=== PATIENT | female | born 1950 | race Two or more races ===

== ENCOUNTER 2017-08-23 11:31 | Inpatient (IN) | payer OTHER ==
[~2017-08-23] VITALS: Ht 152.4 cm; Wt 72.6 kg
[~2017-08-23 11:31] MED LIST: AMLODIPINE BES2.5 MG PO; AROMASIN25 MG PO; AVAPRO150 MG PO; COUMADIN2 MG PO; DISALCID750 MG PO; LIOTHYRONINE 10 MCG/ML IV; NEXIUM40 MG/PACK PO
[2017-08-29] MEDS ORDERED: CEFAZOLIN2 GM/50 M3 IV (09:36)
[2017-08-29] MEDS ORDERED: OMEPRAZOLE20 MG PO (10:34)
[2017-08-29] MEDS ORDERED: CEPHALEXIN500 M1 PO (10:34)
== END 2017-08-29 12:45 | disposition home or self-care (01) | DRG 571 ==
LOC: ER 11:31 → SEC-K 16:10 → MEDI 16:10 → SEC-K 17:43 → MEDJ 08-24 17:33
PROC: B54DZZZ Ultrasonography of Bilateral Lower Extremity Veins (ICD-10-PCS; 2017-08-24)
PROC: 0JBP0ZZ Excision of Left Lower Leg Subcutaneous Tissue and Fascia, Open Approach (ICD-10-PCS; principal; 2017-08-25)
PROC: 0JBP0ZZ Excision of Left Lower Leg Subcutaneous Tissue and Fascia, Open Approach (ICD-10-PCS; 2017-08-29)
DX: L03.116 Cellulitis of left lower limb (principal); L97.828 Non-pressure chronic ulcer of other part of left lower leg with other specified severity; L02.416 Cutaneous abscess of left lower limb; Z74.01 Bed confinement status; G80.8 Other cerebral palsy; R23.8 Other skin changes; I10 Essential (primary) hypertension; B95.61 Methicillin susceptible Staphylococcus aureus infection as the cause of diseases classified elsewhere; Z22.321 Carrier or suspected carrier of Methicillin susceptible Staphylococcus aureus; K21.9 Gastro-esophageal reflux disease without esophagitis; I87.2 Venous insufficiency (chronic) (peripheral)

== ENCOUNTER 2019-01-10 12:12 | Inpatient (IN) | payer OTHER ==
[~2019-01-10] VITALS: Ht 160 cm; Wt 77.1 kg
[~2019-01-10 12:12] MED LIST changes: +CEFAZOLIN2 GM/50 M3 IV; +CEPHALEXIN500 M1 PO; +OMEPRAZOLE20 MG PO
[2019-01-17] MEDS ORDERED: AMOX-CLAV 875-1 EACH PO (10:37)
[2019-01-17] MEDS ORDERED: INTESTINEX680 M1 PO (10:38)
[2019-01-17] MEDS ORDERED: ZANTAC150 MG PO (10:38)
[2019-01-17] MEDS ORDERED: LOTRIMIN AF12 GM TOP (10:40)
== END 2019-01-17 19:48 | DRG 603 ==
LOC: ER 12:12 → MEDJ 16:54
PROVIDERS: ADMIT Internal Medicine
PROC: 8E0ZXY6 Isolation (ICD-10-PCS; 2019-01-10)
PROC: 0T9B70Z Drainage of Bladder with Drainage Device, Via Natural or Artificial Opening (ICD-10-PCS; 2019-01-10)
PROC: 02HV33Z Insertion of Infusion Device into Superior Vena Cava, Percutaneous Approach (ICD-10-PCS; 2019-01-14)
PROC: B54DZZZ Ultrasonography of Bilateral Lower Extremity Veins (ICD-10-PCS; principal; 2019-01-16)
DX: L03.116 Cellulitis of left lower limb (principal); I96 Gangrene, not elsewhere classified; I74.3 Embolism and thrombosis of arteries of the lower extremities; L03.115 Cellulitis of right lower limb; L89.522 Pressure ulcer of left ankle, stage 2; A49.01 Methicillin susceptible Staphylococcus aureus infection, unspecified site; K21.9 Gastro-esophageal reflux disease without esophagitis; G80.9 Cerebral palsy, unspecified; R31.0 Gross hematuria; I87.8 Other specified disorders of veins; I10 Essential (primary) hypertension; Z88.2 Allergy status to sulfonamides; Z99.3 Dependence on wheelchair

== ENCOUNTER → 2019-05-11 | Emergency (ER) | payer OTHER ==
[~2019-05-11] VITALS: Ht 157.5 cm; Wt 68.0 kg
[~2019-05-11] MED LIST changes: +AMOX-CLAV 875-1 EACH PO; +BACLOFEN20 MG PO; +INTESTINEX680 M1 PO; +LOTRIMIN AF12 GM TOP; +SALSALATE750 MG; +ZANTAC150 MG PO
== END | disposition home or self-care (01) ==
LOC: ER 13:16
DX: G80.8 Other cerebral palsy (principal); N39.0 Urinary tract infection, site not specified

== ENCOUNTER 2019-05-26 20:03 | Emergency (ER) | payer OTHER ==
[~2019-05-26] VITALS: Ht 152.4 cm; Wt 81.6 kg
== END 2019-05-27 12:30 | disposition home or self-care (01) ==
LOC: ER 20:03
DX: G45.8 Other transient cerebral ischemic attacks and related syndromes (principal); R41.0 Disorientation, unspecified; Z60.2 Problems related to living alone

== ENCOUNTER 2021-04-18 09:04 | Outpatient (CLI) | payer OTHER | END 2021-04-18 09:09 | disposition home or self-care (01) | LOC: SONOGRAMA 09:04 | PROVIDERS: ATTEND General Practice | DX: K76.0 Fatty (change of) liver, not elsewhere classified (principal); K80.80 Other cholelithiasis without obstruction; R10.84 Generalized abdominal pain ==

== ENCOUNTER 2022-05-24 16:27 | Emergency (ER) | payer OTHER ==
[~2022-05-24] VITALS: Ht 147.3 cm; Wt 68.0 kg
[2022-05-24] MEDS ORDERED: MIRALAX510 GM PO (19:37)
== END 2022-05-24 19:51 | disposition home or self-care (01) ==
LOC: ER 16:27
DX: K59.00 Constipation, unspecified (principal); D25.9 Leiomyoma of uterus, unspecified; K44.9 Diaphragmatic hernia without obstruction or gangrene; G80.9 Cerebral palsy, unspecified; Z88.8 Allergy status to other drugs, medicaments and biological substances